=== PATIENT | male | born 1950 | race Caucasian/White ===

== ENCOUNTER 2018-06-18 17:44 | Emergency (ER) | payer MEDICARE ==
[2018-06-18 18:53] VITALS: BP 121/69
[2018-06-18] MEDS ORDERED: Cyclobenzaprine TAB* 10 MG PO ONE (19:55)
[2018-06-18] MEDS ORDERED: Naproxen TAB* 250 MG PO ONE (19:55)
--- NOTE | 2018-06-18 20:03 | UC ---
Lower Extremity/Ankle HPI - HPI Summary HPI Summary: 68 year old male presents with 4 week history of intermittent pain in left buttocks that radiates down his left leg to the the ankle. Describes pain is an intense ache. Resolves with sitting. Is triggered by ambulation and movement of leg. He has consulted a massage therapist and chiropractor with no improvement in symptoms. Has also tried OTC acetaminophen with minimal relief. Denies fever , chills, rash, back injury, back or flank pain, abdominal pain, urinary symptoms, numbness, tingling, or weakness of extremity, edema, calf pain or swelling, or loss of bowel or bladder control. - History of Current Complaint Chief Complaint: UCLowerExtremity Stated Complaint: HIP PAIN/ LEG PAIN Time Seen by Provider: 06/18/18 19:10 Hx Obtained From: Patient Severity Initially: Moderate Severity Currently: Moderate Pain Intensity: 9 Aggravating Factor(s): Ambulation Alleviating Factor(s): Rest, Other - Sitting Able to Bear Weight: Yes - Allergies/Home Medications Allergies/Adverse Reactions: Allergies Allergy/AdvReac Type Severity Reaction Status Date / Time erythromycin base Allergy Rash Verified 06/18/18 18:53 Home Medications: Home Medications Acetaminophen TAB* [Tylenol TAB*] 325 mg PO PRN 06/18/18 [History] PMH/Surg Hx/FS Hx/Imm Hx Endocrine History: Diabetes - Surgical History Surgical History: Yes Surgery Procedure, Year, and Place: hernia repairs, inguinal and abdominal. TURP - Family History Family History: noncontributory - Social History Occupation: Employed Full-time Lives: With Family Alcohol Use: Occasionally Substance Use Type: None Smoking Status (MU): Current Every Day Smoker Type: Cigarettes Amount Used/How Often: 3-4 ppd Review of Systems Constitutional: Negative Skin: Negative Gastrointestinal: Negative Genitourinary: Negative Motor: Negative Neurovascular: Negative Musculoskeletal: Other: - see HPI Neurological: Negative Is Patient Immunocompromised?: No All Other Systems Reviewed And Are Negative: Yes Physical Exam Triage Information Reviewed: Yes Appearance: Well-Appearing, No Pain Distress, Well-Nourished Vital Signs: Initial Vital Signs Temp 97.5 F 06/18/18 18:47 Pulse 69 06/18/18 18:47 Resp 16 06/18/18 18:47 BP 121/69 06/18/18 18:47 Pulse Ox 98 06/18/18 18:47 Respiratory: Positive: Lungs clear, Normal breath sounds, No respiratory distress Cardiovascular: Positive: RRR, No Murmur Musculoskeletal: Positive: Strength Intact, ROM Intact - Full ROM left hip, No Edema, Other: - Tenderness over left buttocks. Pain elicited with lying down. Neurological: Positive: Alert, Muscle Tone Normal Skin Exam: Normal Lower Extremity Course/Dx - Course Course Of Treatment: 68 year old male with 4 weeks intermittent sciatic-type pain to left leg. Hip was unremarkable on exam. Tenderness left buttock over the prioformis area. Strength and sensation intact to left leg. Will treat conservatively with NSAID and PRN cyclobenzaprine. He is to follow up with PCP if symptoms persist. Warning symptoms reviewed. Verbalizes understanding and agrees with POC. - Differential Dx/Diagnosis Differential Diagnosis/HQI/PQRI: Arthritis, Sciatica, Sprain Provider Diagnoses: sciatica left leg Discharge - Sign-Out/Discharge Documenting (check all that apply): Patient Departure All imaging exams completed and their final reports reviewed: No Studies - Discharge Plan Condition: Stable Disposition: HOME Prescriptions: Cyclobenzaprine TAB* [Flexeril 10 MG TAB*] 10 mg PO TID PRN #15 tab PRN Reason: Severe Pain Naproxen [Naproxen 375 mg tab] 375 mg PO BID #30 tablet Patient Education Materials: Sciatica (ED) Referrals: No Primary Care Phys,NOPCP [Primary Care Provider] - Additional Instructions: Take naproxen 1 tablet every 12 hours with food for next 7 days. After 7 days you may take every 12 hours as needed for pain. Be sure to take with food to avoid stomach upset. Take cyclobenzaprine (Flexeril) one tablet every 8 hours as needed for severe pain or muscle spasm. Be aware that this will cause drowsiness and he should not take and drive or operate machinery. You can try using warm moist heat to the affected area for 15-20 minutes 3-4 times a day. Follow-up with your primary care provider if no improvement in 7 days. Seek immediate medical attention in the emergency room if you develop fever greater than 100.5 F, have worsening or persistent pain, weakness in the in the leg, you develop any numbness or tingling in the legs foot or toes, or if you lose control of her bowel or bladder. - Billing Disposition and Condition Condition: STABLE Disposition: Home - Attestation Statements Provider Attestation: I was available for consult. This patient was seen by the [facility]. The patient was not presented to, seen by, or examined by me. -Natali
== END 2018-06-18 20:26 | disposition home or self-care (01) ==
LOC: UCEAST 17:44
DX: M54.32 Sciatica, left side (principal); Z88.1 Allergy status to other antibiotic agents; F17.210 Nicotine dependence, cigarettes, uncomplicated
CPT/HCPCS: 99202; A9270-GY; G0463